=== PATIENT | female | born 2000 | race Caucasian/White ===

== ENCOUNTER 2020-11-23 09:17 | Inpatient (IN) | payer OTHER ==
[~2020-11-23] VITALS: Ht 157.5 cm; Wt 93.0 kg
[~2020-11-23 09:17] MED LIST: PREDNISONE 20MG20 MG PO; TRIAMCINOLONE A15 G1 TOP; ZYRTEC10 MG PO
[2020-11-23 10:37] LABS: BILIRUBIN NEGATIVE (NEGATIVE); BLOOD 2+ Ery/uL (NEGATIVE); CLARITY CLEAR (CLEAR); COLOR YELLOW (YELLOW); GLUCOSE (U) NORMAL (NORMAL); LEUKOCYTES TRACE Leu/uL (NEGATIVE); NITRITE NEGATIVE (NEGATIVE); PROTEIN NEGATIVE (NEGATIVE); SPECIFIC GRAVITY 1.015 (1.001-1.030); UROBILINOGEN 0.2 mg/dL (0.2-1.0); pH 7.5 (5.0-9.0)
[2020-11-23 10:50] LABS: AMORPHOUS PHOSPHATE CRYSTALS TRACE; BACTERIA 1+; URINARY RBC RARE
[2020-11-23 11:54] LABS: ALBUMIN 2.5 g/dL (3.4-5.0); BILIRUBIN - TOTAL 0.3 mg/dL (0.2-1.0); CREATININE 0.6 mg/dL (0.51-0.95); TOTAL PROTEIN 6.5 g/dL (6.4-8.2); URIC ACID 4.3 mg/dL (2.6-6.2)
[2020-11-23 11:55] LABS: HCT 38.9 % (37.0-47.0); HGB 12.8 g/dl (12.5-16.0); MCH 29.6 pg (25.0-31.0); MCHC 32.9 g/dL (32.0-36.0); MCV 89.8 fL (78.0-100.0); MPV 10.9 fL (6.0-9.5); RBC 4.33 M/uL (4.20-5.40); RDW 13.7 % (11.5-14.0); WBC 13.6 K/uL (4.0-10.5)
[2020-11-23 12:04] LABS: AMPHETAMINES NEGATIVE (NEGATIVE); BARBITURATES NEGATIVE (NEGATIVE); ECSTASY (MDMA) NEGATIVE (NEGATIVE); MARIJUANA (THC) NEGATIVE (NEGATIVE); METHADONE NEGATIVE (NEGATIVE); OPIATES NEGATIVE (NEGATIVE); OXYCODONE NEGATIVE (NEGATIVE)
[2020-11-23 12:12] LABS: PROTEIN:CREATININE 0.2 RATIO; URINE CREATININE 47.75 mg/dL (29.00-226.00); URINE TOTAL PROTEIN-RANDOM 9.9 mg/dL (<11.9)
[2020-11-24 06:17] LABS: HGB 11.9 g/dl (12.5-16.0); MCH 30.2 pg (25.0-31.0); MCHC 33.1 g/dL (32.0-36.0); MCV 91.4 fL (78.0-100.0); RBC 3.94 M/uL (4.20-5.40); RDW 13.6 % (11.5-14.0); WBC 17.6 K/uL (4.0-10.5)
[2020-11-25] MEDS ORDERED: IBUPROFEN800 M1 PO (08:18)
[2020-11-25] MEDS ORDERED: PRENATAL FORMU1 EACH PO (08:18)
[2020-11-25] MEDS ORDERED: COLACE100 MG PO (08:18)
== END 2020-11-25 11:58 | disposition home or self-care (01) | DRG 807 ==
LOC: FOD 09:17 → FOB 09:18 → FOD 17:37 → FOB 19:21
PROVIDERS: ADMIT Obstetrics & Gynecology
PROC: 10E0XZZ Delivery of Products of Conception, External Approach (ICD-10-PCS; principal; 2020-11-23)
PROC: 3E0234Z Introduction of Serum, Toxoid and Vaccine into Muscle, Percutaneous Approach (ICD-10-PCS; 2020-11-24)
DX: O26.893 Other specified pregnancy related conditions, third trimester (principal); Z37.0 Single live birth; Z67.11 Type A blood, Rh negative; Z3A.38 38 weeks gestation of pregnancy; Z28.21 Immunization not carried out because of patient refusal; Z20.822 Contact with and (suspected) exposure to COVID-19; R03.0 Elevated blood-pressure reading, without diagnosis of hypertension; O69.81X0 Labor and delivery complicated by cord around neck, without compression, not applicable or unspecified
CPT/HCPCS: 36415; 80053; 80305; 81001; 82570; 83615; 84156; 84550; 85461; 86850; 86900; 86901; J2300; J2405; J2790; J7120; U0002